=== PATIENT | female | born 1975 | race African-American/Black ===

== ENCOUNTER 2016-09-26 09:56 | Emergency (ER) | payer OTHER ==
[~2016-09-26] VITALS: Ht 172.7 cm; Wt 150.1 kg
[~2016-09-26 09:56] MED LIST: CATAPRES0.2 MG PO; CLONIDINE HCL0.1 MG PO; COLACE100 MG PO; Colace PO; FERGON324 MG PO; FERROUS GLUCON324 M2 PO; FLEXERIL10 MG PO; FLONASE16 G1 BOTH NARES; Flagyl PO; LOVENOX40 MG/0.4 SC; Levaquin PO; MILK OF MAGNES311 MG PO; MUCUS ER600 MG PO; Milk Of Magnesia,MOM PO; NAPROSYN500 MG PO; NORVASC10 MG PO; Norvasc PO; Phenergan PO; SIMVASTATIN40 MG PO; Tylenol Regular Stre PO; ZESTORETIC,P1 TABLE1 PO; Zestoretic,Prinzide PO; Zocor PO
[2016-09-26 12:03] LABS: ADD MIUA? NO; BILIRUBIN NEGATIVE; BLOOD NEGATIVE; COLOR YELLOW ((YELLOW)); GLUCOSE (STRIP) NEGATIVE; KETONES NEGATIVE; LEUKOCYTES NEGATIVE; NITRITE NEGATIVE; PROTEIN (STRIP) NEGATIVE; SPECIFIC GRAVITY 1.012 (1.000-1.030); UROBILINOGEN 0.2 MG/DL (0.2-1.0)
[2016-09-26] MEDS ORDERED: NAPROXEN500 MG PO (12:29)
[2016-09-26 13:09] VITALS: BP 158/74
== END 2016-09-26 13:10 | disposition home or self-care (01) ==
LOC: EME 09:56
PROVIDERS: Nurse Practitioner Family
DX: M54.5 Low back pain (principal); I10 Essential (primary) hypertension; E78.5 Hyperlipidemia, unspecified; Z87.891 Personal history of nicotine dependence
CPT/HCPCS: 81003; 99281; 99284

== ENCOUNTER 2017-02-14 18:47 | Emergency (ER) | payer SELFPAY ==
[~2017-02-14] VITALS: Ht 170.2 cm; Wt 150.3 kg
[~2017-02-14 18:47] MED LIST changes: +NAPROXEN500 MG PO
[2017-02-14 19:53] LABS: INFLUENZA A VIRAL ANTIGEN NEGATIVE; INFLUENZA B VIRAL ANTIGEN NEGATIVE
[2017-02-14] MEDS ORDERED: HYCODAN SYRUP480 ML PO (21:21)
[2017-02-14] MEDS ORDERED: ALLEGRA-D 121 TABLET PO (21:21)
[2017-02-14 22:01] VITALS: BP 191/102
== END 2017-02-14 22:02 | disposition home or self-care (01) ==
LOC: EME 18:47
DX: J06.9 Acute upper respiratory infection, unspecified (principal); I10 Essential (primary) hypertension; E78.5 Hyperlipidemia, unspecified; Z87.891 Personal history of nicotine dependence
CPT/HCPCS: 71020; 87502; 87651 90; 99281; 99284

== ENCOUNTER 2017-06-28 12:05 | Emergency (ER) | payer SELFPAY ==
[~2017-06-28] VITALS: Ht 172.7 cm; Wt 152.9 kg
[~2017-06-28 12:05] MED LIST changes: +ALLEGRA-D 121 TABLET PO; +HYCODAN SYRUP480 ML PO
[2017-06-28 12:35] VITALS: BP 140/95
== END 2017-06-28 15:00 | disposition left against medical advice (07) ==
LOC: EME 12:05
DX: J11.1 Influenza due to unidentified influenza virus with other respiratory manifestations (principal); Z53.21 Procedure and treatment not carried out due to patient leaving prior to being seen by health care provider

== ENCOUNTER 2017-06-28 19:46 | Emergency (ER) | payer SELFPAY ==
[~2017-06-28] VITALS: Ht 177.8 cm; Wt 151.1 kg
[2017-06-28 20:39] LABS: ALBUMIN 3.8 g/dL (3.2-4.8); CHLORIDE 103 mEq/L (99-109); HEMATOCRIT 34.3 % (36.0-46.0); MCH 20.6 PG (29.0-34.0); MCHC 32.1 G/DL (30.0-36.0); MCV 64.1 FL (83-99); PLATELET COUNT 344 K/uL (156-360); RBC DIS.WIDTH-CV 15.7 % (11.8-14.6); RBC DIS.WIDTH-SD 35.2 % (39-53); RED BLOOD COUNT 5.35 M/uL (3.80-5.20); WHITE BLOOD COUNT 20.8 K/uL (4.1-10.2)
[2017-06-28 20:40] LABS: SODIUM 138 mEq/L (136-147)
[2017-06-28 20:42] LABS: GLUCOSE 103 mg/dL (70-99); TOTAL PROTEIN 7.5 g/dL (6.4-8.3)
[2017-06-28 20:44] LABS: TOTAL BILIRUBIN 0.7 mg/dL (0.0-1.0)
[2017-06-28 20:45] LABS: ALKALINE PHOSPHATASE 125 IU/L (3-129); CREATININE 0.9 mg/dL (0.6-1.3); GFR ESTIMATE (CALCULATED) > 59 mL/min/
[2017-06-28 20:47] LABS: AST (GOT) 16 IU/L (2-34); UREA NITROGEN (BUN) 10 mg/dL (9-23)
[2017-06-28 20:48] LABS: ALT (GPT) 17 IU/L (3-49)
[2017-06-28 20:57] LABS: QUANTITATIVE HCG < 4.0 MIU/ML
[2017-06-28 23:19] LABS: APPEARANCE SL.HAZY ((CLEAR)); BILIRUBIN NEGATIVE; BLOOD NEGATIVE; COLOR YELLOW ((YELLOW)); GLUCOSE (STRIP) NEGATIVE; KETONES NEGATIVE; LEUKOCYTES MODERATE; NITRITE NEGATIVE; PROTEIN (STRIP) 30; SPECIFIC GRAVITY 1.025 (1.000-1.030); UROBILINOGEN 0.2 MG/DL (0.2-1.0)
[2017-06-28 23:23] LABS: BACTERIA RARE /HPF; EPITHELIAL CELLS 1+ /HPF; MUCUS TRACE /LPF; RED BLOOD CELLS 0-5 /HPF (0-5); UCUL ADDED? YES; WHITE BLOOD CELLS 20-30 /HPF (0-5)
[2017-06-29 02:52] VITALS: BP 121/59
== END 2017-06-29 02:52 | disposition home or self-care (01) ==
LOC: EME 19:46
DX: J02.0 Streptococcal pharyngitis (principal); E78.5 Hyperlipidemia, unspecified; I10 Essential (primary) hypertension; Z87.891 Personal history of nicotine dependence
CPT/HCPCS: 71046; 80053; 81003; 83605; 84702; 85027; 87040; 87086; 87502; 87651 90; 99281; 99285; J0561; J7030

== ENCOUNTER 2017-08-02 07:43 | Emergency (ER) | payer SELFPAY ==
[~2017-08-02] VITALS: Ht 172.7 cm; Wt 152.4 kg
[2017-08-02 09:37] LABS: BASOPHIL (%) 0.2 % (0-1); EOSINOPHIL (%) 0.4 % (0-5); EOSINOPHIL COUNT 0.1 K/uL (0-0.3); HEMATOCRIT 32.6 % (36.0-46.0); HEMOGLOBIN 10.6 G/DL (11.9-15.5); IMMATURE GRANULOCYTE (%) 0.6 % (0.0-0.7); LYMPHOCYTE (%) 14.7 % (15-42); LYMPHOCYTE COUNT 1.8 K/uL (1.0-2.8); MCH 20.9 PG (29.0-34.0); MCHC 32.5 G/DL (30.0-36.0); MCV 64.4 FL (83-99); MONOCYTE (%) 12.7 % (3-12); MONOCYTE COUNT 1.6 K/uL (0-0.8); NEUTROPHIL (%) 71.4 % (45-76); NEUTROPHIL COUNT 8.9 K/uL (1.8-6.4); PLATELET COUNT 262 K/uL (156-360); RBC DIS.WIDTH-CV 15.9 % (11.8-14.6); RBC DIS.WIDTH-SD 36.1 % (39-53); RED BLOOD COUNT 5.06 M/uL (3.80-5.20); WHITE BLOOD COUNT 12.4 K/uL (4.1-10.2)
[2017-08-02 09:39] LABS: CHLORIDE 102 mEq/L (99-109); POTASSIUM 3.4 mEq/L (3.7-5.4); SODIUM 138 mEq/L (136-147)
[2017-08-02 09:41] LABS: GLUCOSE 114 mg/dL (70-99)
[2017-08-02 09:44] LABS: CREATININE 0.8 mg/dL (0.6-1.3); GFR ESTIMATE (CALCULATED) > 59 mL/min/
[2017-08-02 09:45] LABS: UREA NITROGEN (BUN) 9 mg/dL (9-23)
[2017-08-02] MEDS ORDERED: LEVAQUIN750 MG PO (11:26)
[2017-08-02 12:21] VITALS: BP 141/72
== END 2017-08-02 12:38 | disposition home or self-care (01) ==
LOC: EME 07:43
PROVIDERS: Emergency Medicine
DX: J18.9 Pneumonia, unspecified organism (principal); E78.5 Hyperlipidemia, unspecified; I10 Essential (primary) hypertension; Z87.891 Personal history of nicotine dependence
CPT/HCPCS: 71046; 80048; 85025; 87502; 99281; 99285; J2405; J7030

== ENCOUNTER 2017-11-09 18:19 | Emergency (ER) | payer SELFPAY ==
[~2017-11-09] VITALS: Ht 170.2 cm; Wt 160.8 kg
[~2017-11-09 18:19] MED LIST changes: +LEVAQUIN750 MG PO
[2017-11-09 21:35] LABS: BASOPHIL (%) 0.3 % (0-1); EOSINOPHIL (%) 3.3 % (0-5); EOSINOPHIL COUNT 0.3 K/uL (0-0.3); HEMATOCRIT 32.8 % (36.0-46.0); HEMOGLOBIN 10.4 G/DL (11.9-15.5); IMMATURE GRANULOCYTE (%) 0.3 % (0.0-0.7); LYMPHOCYTE (%) 28.5 % (15-42); LYMPHOCYTE COUNT 2.9 K/uL (1.0-2.8); MCH 20.6 PG (29.0-34.0); MCHC 31.7 G/DL (30.0-36.0); MONOCYTE (%) 11.1 % (3-12); MONOCYTE COUNT 1.1 K/uL (0-0.8); NEUTROPHIL (%) 56.5 % (45-76); NEUTROPHIL COUNT 5.8 K/uL (1.8-6.4); PLATELET COUNT 346 K/uL (156-360); RBC DIS.WIDTH-CV 15.6 % (11.8-14.6); RBC DIS.WIDTH-SD 35.3 % (39-53); RED BLOOD COUNT 5.05 M/uL (3.80-5.20); WHITE BLOOD COUNT 10.3 K/uL (4.1-10.2)
[2017-11-09 21:36] LABS: ALBUMIN 3.7 g/dL (3.2-4.8)
[2017-11-09 21:37] LABS: CHLORIDE 104 mEq/L (99-109); POTASSIUM 3.4 mEq/L (3.7-5.4); SODIUM 139 mEq/L (136-147)
[2017-11-09 21:39] LABS: GLUCOSE 101 mg/dL (70-99)
[2017-11-09 21:41] LABS: TOTAL BILIRUBIN 0.4 mg/dL (0.0-1.0)
[2017-11-09 21:42] LABS: ALKALINE PHOSPHATASE 96 IU/L (3-129)
[2017-11-09 21:43] LABS: CREATININE 0.7 mg/dL (0.6-1.3); GFR ESTIMATE (CALCULATED) > 59 mL/min/
[2017-11-09 21:44] LABS: AST (GOT) 14 IU/L (2-34); UREA NITROGEN (BUN) 9 mg/dL (9-23)
[2017-11-09 21:45] LABS: ALT (GPT) 15 IU/L (3-49)
[2017-11-09 22:15] LABS: ERTH.SED.RATE > 130 MM/HR (0-20)
[2017-11-09 22:34] VITALS: BP 198/117
[2017-11-09 22:44] LABS: THYROTROPIN (TSH) < 0.02 MIU/L (0.4-5.5)
== END 2017-11-09 22:35 | disposition home or self-care (01) ==
LOC: EME 18:19
PROVIDERS: Emergency Medicine
DX: H18.20 Unspecified corneal edema (principal); I10 Essential (primary) hypertension; E05.00 Thyrotoxicosis with diffuse goiter without thyrotoxic crisis or storm; E78.5 Hyperlipidemia, unspecified; F17.200 Nicotine dependence, unspecified, uncomplicated
CPT/HCPCS: 80053; 84439; 84443; 85025; 85651; 99281; 99285